=== PATIENT | female | born 1990 | race African-American/Black ===

== ENCOUNTER 2021-11-08 11:08 | Emergency (ER) | payer MEDICAID ==
[~2021-11-08] VITALS: Ht 165.1 cm; Wt 61.0 kg
[2021-11-08 11:21] VITALS: BP 120/78
[2021-11-08] MEDS ORDERED: TETRACAINE 0.5% OPHTH DROPS 4ML RIGHTEYE ONE (11:30)
[2021-11-08] MEDS ORDERED: FLUORESCEIN SODIUM 1MG/STRIP RIGHTEYE ONE (11:30)
[2021-11-08] MEDS ORDERED: TETRACAINE 0.5% OPHTH DROPS 4ML RIGHTEYE NR (12:45)
[2021-11-08] MEDS ORDERED: FLUORESCEIN SODIUM 1MG/STRIP RIGHTEYE NR (12:45)
[2021-11-08] MEDS ORDERED: CIPR2.5D13 RIGHTEYE (14:39)
== END 2021-11-08 11:31 | disposition left against medical advice (07) ==
LOC: ER 11:31
DX: H16.001 Unspecified corneal ulcer, right eye (principal)
CPT/HCPCS: 99283